=== PATIENT | female | born 1985 | race Caucasian/White ===

== ENCOUNTER → 2023-10-06 | Outpatient (CLI) | payer OTHER | LOC: M RAD 09:24 | PROVIDERS: ATTEND Internal Medicine Medical Oncology | DX: C50.911 Malignant neoplasm of unspecified site of right female breast (principal); Z17.0 Estrogen receptor positive status [ER+] | CPT/HCPCS: 78306; A9503 ==

== ENCOUNTER → 2024-03-07 | Outpatient (CLI) | payer OTHER | LOC: M WHC 09:06 | PROVIDERS: ATTEND Nurse Practitioner Family | DX: Z79.818 Long term (current) use of other agents affecting estrogen receptors and estrogen levels (principal) ==